=== PATIENT | female | born 1960 | race Caucasian/White ===

== ENCOUNTER 2024-01-24 18:24 | Inpatient (IN) | payer BC, SELFPAY ==
[2024-01-24 13:04] VITALS: BP 105/90; BMI 33.4
[2024-01-24 14:34] LABS: % Basophils 0.7 % (0-2); % Eosinophils 3.9 % (0-6); % Immature Granulocytes 0.5 % (0-0.5); % Lymphocytes 18.2 % (20.5-51.1); % Monocytes 8.7 % (1.7-9.3); Absolute Basophils 0.1 10^3/uL (0-0.2); Absolute Eosinophils 0.4 10^3/uL (0-0.7); Absolute Immature Granulocytes 0.1 10^3/uL (0-0.05); Absolute Lymphocytes 1.8 10^3/uL (1.2-3.4); Absolute Monocytes 0.9 10^3/uL (0.1-0.6); Absolute Neutrophils 6.8 10^3/uL (1.4-6.5); Hematocrit 37.9 % (37.0-47.0); Hemoglobin 12.9 g/dL (12.0-16.0); Mean Corpuscular Hgb 28.9 pg (27.0-31.0); Mean Corpuscular Volume 84.8 fL (81.0-99.0); Mean Platelet Volume 10.2 fL (7.4-10.4); Nucleated Red Blood Cells % 0 %; Platelet Count 425 10^3/uL (130-400); Red Blood Cell Count 4.47 10^6/uL (4.20-5.40); Red Cell Dist. Width 13.3 % (11.5-14.5)
[2024-01-24 14:42] LABS: ALT (SGPT) 21 U/L (0-35); AST (SGOT) 30 U/L (14-36); Albumin 3.6 g/dl (3.5-5.0); Alkaline Phosphatase 130 U/L (38-126); Blood Urea Nitrogen 16 mg/dl (7-17); Calcium 9.3 mg/dl (8.4-10.2); Carbon Dioxide 24 mmol/L (22-30); Chloride 105 mmol/L (98-107); Estimated Creatinine Clearance 76 ml/min; Glucose 113 mg/dl (70-99); Potassium 4.3 mmol/L (3.5-5.1); Sodium 139 mmol/L (135-145); Total Bilirubin 0.3 mg/dl (0.2-1.3); Total Protein 6.6 g/dl (6.3-8.2); eGFR > 60.00
[2024-01-24 14:51] LABS: INR 1.21; PT 15.2 Sec (11.4-14.6)
[2024-01-24 15:06] VITALS: BP 117/50
[2024-01-24 15:14] LABS: Troponin I < 0.012 ng/ml
--- NOTE | 2024-01-24 15:54 | ED.GENMED ---
History of Present Illness
General
Chief Complaint: Cardiac Symptoms
Source: patient and spouse
Exam Limitations: none
Time Seen by Provider: 01/24/24 14:49
Travel History
Have you had any contact with someone who has COVID-19?: No
Do you have any symptoms of coronavirus? Fever > 100 degrees, chills, cough, shortness of breath, sore throat, loss of taste or smell, muscle aches, or headache?: No
History of Present Illness
History of Present Illness:
Patient with 3 episodes of A-fib RVR this week. First episode was 6 days ago. Sudden onset heart racing. Admitted to [facility]. Placed on a Cardizem drip with self cardioversion by the next morning. At that time discharged on Cardizem
and Eliquis. 2 days later, 4 days ago, patient had severe A-fib RVR symptomatic diaphoretic lightheaded. Attempted cardioversion in the ambulance. Was admitted placed on Cardizem followed by sotalol. Sotalol loading done until 2 days ago. At
that time discharge. Recurring A-fib RVR that night, 2 days ago, again readmitted laced on a Cardizem drip with self cardioversion by the next morning. Patient had recurrent episode 2 times today. Was told to go to dual time he ER or hospital for
a ablation
Past History
Past History
ED Past Medical History: Arrthythmia and Other (Sleep apnea)
Review of Systems
Review of Systems
All Other Systems: Not applicable
Respiratory: Reports no symptoms
Cardiac: Denies chest pain
Phy Exam
Physical Exam
Physical Exam:
GENERAL: Alert and oriented in no apparent distress
EYE: Orbits normal.
NECK: Supple, no significant adenopathy.
ENT: Pharynx without erythema
CARDIAC: Regular rate and rhythm without any obvious murmurs.
LUNGS: Clear breath sounds,normal
ABDOMEN: Soft, without focal tenderness or distention
NEUROLOGICAL: Alert and oriented , grossly non-focal
SKIN: Warm and dry, no rash or lesion, no discoloration, skin intact.
MUSCULOSKELETAL: No edema,no deformity.Good color
PSYCH: Normal and appropriate interaction.
Course
Orders/Labs/Results
Orders:
Orders
01/24/24 13:08
EKG [Electrocardiogram (*1)] Urgent
Reason for Study: Atrial Fibrillation
01/24/24 13:09
EKG- Treatment ONCE
01/24/24 14:23
Complete Blood Count/With Diff Urgent
Comprehensive Metabolic Panel Urgent
Prothrombin Time Urgent
Troponin I Urgent
Abnormal Lab Results
01/24/24
14:23
Plt Count 425 H 10^3/uL
(130-400)
Abs Immat Gran (auto) 0.1 H 10^3/uL
(0-0.05)
Absolute Neuts (auto) 6.8 H 10^3/uL
(1.4-6.5)
Absolute Monos (auto) 0.9 H 10^3/uL
(0.1-0.6)
Lymphocytes % 18.2 L %
(20.5-51.1)
PT 15.2 H Sec
(11.4-14.6)
Glucose 113 H mg/dl
(70-99)
Alkaline Phosphatase 130 H U/L
(38-126)
01/24/24 14:23
01/24/24 14:23
Vital Signs
Initial and Last Documented VS:
Initial Vital Signs
Temp Pulse Resp BP Pulse Ox
98.5 F 73 18 105/90 96
01/24/24 13:04 01/24/24 13:04 01/24/24 13:04 01/24/24 13:04 01/24/24 13:04
Last Documented Vital Signs
Temp Pulse Resp BP Pulse Ox
98.5 F 73 18 105/90 98
01/24/24 13:04 01/24/24 13:04 01/24/24 13:04 01/24/24 13:04 01/24/24 15:08
*Pulse Oximetry
Patient hypoxic: no
*EKG
Interpreted by ED Provider?: Yes
Interpretation: abnormal
Comparison EKG: no comparison EKG present
Heart Rate: 73
Rate: normal
Rhythm: sinus
[place]: normal axis
Interval: normal interval
QRS Pattern: normal QRS
Ischemia: T-wave inversion
*Assistant Professor Nurse Education Interpretation
Rate: normal
Interpretation: normal
Heart Rate: 70
Rhythm: sinus
*Critical Care Note
Total Time (30-74mins, 75-104mins- exclusive of procedures): Not Applicable
Update Note
Update Note:
Discussed with cardiology. 3 episodes of symptomatic atrial fibrillation this week. Given the recent sotalol loading we will not change this dosing currently. Reluctant to increase Cardizem because of borderline heart rate and borderline blood
pressure while on these doses. Discussed admission versus close outpatient follow-up. Given the symptomatic fibrillation this past week patient is more comfortable with admission and further observation and care
ED Attending Note
-
Portions of this chart may have been created with voice recognition software.� Occasional wrong word or��sound alike� substitutions may have occurred due to the inherent limitations of voice recognition software.
Discharge Plan
Departure
Patient Disposition: Admit
Date of Disposition: 01/24/24
Time of Disposition: 15:55
Presentation/result/management discussed w/ accepting MD/DO: Cardiology
Discharge Problem:
Recurrent A-fib/RVR.
Prescriptions:
No Action
levothyroxine 137 mcg tablet
137 mcg PO MOTUWETHFRSA
levothyroxine 137 mcg tablet
205.5 mcg PO CHARLES
leflunomide 20 mg tablet
20 mg PO DAILY
sotalol 120 mg tablet
120 mg PO BID
sertraline 25 mg tablet
25 mg PO HS
diltiazem HCl 120 mg capsule,extended release 24hr
120 mg PO DAILY
bupropion HCl 300 mg tablet extended release 24 hr
300 mg PO DAILY
Eliquis 5 mg tablet
5 mg PO BID
Qelbree 200 mg capsule,extended release 24hr
400 mg PO DAILY
multivitamin Tablet
1 tab PO DAILY
B Complex Tablet Extended Release
1 tab PO DAILY
calcium carbonate [Calcium 500] 500 mg calcium (1,250 mg) Tablet
500 mg PO DAILY
cholecalciferol (vitamin D3) 25 mcg (1,000 unit) Tablet
25 mcg PO DAILY
omega 9-gub-pcz-fish oil [Fish Oil] 1,000 mg (120 mg-180 mg) Capsule
1 cap PO DAILY
Qelbree 100 mg capsule,extended release 24hr
100 mg PO DAILY
Referrals:
Kathi Thomas CRNP [Family Provider] -
Interventions
Interventions:
*Risk Screen - Suicide Last Done: 01/24/24 13:04
*General Assessment Last Done: 01/24/24 15:07
*Neglect/Abuse Screening Last Done: 01/24/24 13:04
ED- Fall Risk Assessment Last Done: 01/24/24 15:08
*ED COVID-19 Vaccine History Last Done: 01/24/24 15:07
ED- Pulmonary Assessment Last Done: 01/24/24 15:08
ED- Cardiac Assessment Last Done: 01/24/24 15:08
Discharge Date and Time
Print Language: FRISIAN
[2024-01-24 16:14] VITALS: BP 120/34
--- NOTE | 2024-01-24 16:49 | HPS.HSE ---
Family Physician
-
Family Physician: Kathi Thomas
Chief Complaint
-
Rapid heart rate.
History of Present Illness
63 woman who has had 3 episodes of A-fib with RVR this week. The First episode was 6 days ago. She feels it as Sudden onset heart racing. She was admitted to [facility] and Placed on a Cardizem drip, then she had self cardioversion by the
next morning. She was discharged on Cardizem and Eliquis. 2 days later, (4 days ago), She had severe A-fib with RVR, symptomatic with diaphoretic lightheadedness. Cardioversion was attempted in the ambulance. She Was then admitted and placed on
Cardizem, followed by sotalol. The Sotalol loading was done until 2 days ago when she was again discharged. She had Recurring A-fib RVR that night at home, 2 days ago, and was again readmitted, placed on a Cardizem drip with self cardioversion by
the next morning.
Patient had recurrent episodes 2 times today. She was told to go to the ER or hospital for an ablation. At the time of my interview, she was back in sinus, rate of 70, and comfortable.
Medical History
Past Medical History
Past Medical History: Reports Other
Additional Past Medical History:
Arrthythmia - on eliquis, sotalol, diltiazem
Sleep apnea
Thyroid disease (on levothyroxine)
Mood disorder on SSRI
Rheumatoid arthritis
Past Surgical History: Reports None
Social History
Tobacco: Non-smoker
Alcohol: None
Drug: None
Personal:
Living: With Family
Family History
Family History: Not pertinent
Allergies / Home Medications
Allergies reflects when Allergies were last updated in [employer].
Home Medications with original date entered in [employer]
Allergy/Medication List:
Allergies
Allergy/AdvReac Type Severity Reaction Status Date / Time
adhesive Allergy Rash Verified 01/24/24 13:04
iodine Allergy Nausea / Verified 01/24/24 13:04
Vomiting
Home Medications
apixaban 5 mg tablet (Eliquis) 5 mg PO BID 01/24/24
bupropion HCl 300 mg 24 hr tablet, extended release 300 mg PO DAILY 01/24/24
calcium carbonate 500 mg PO DAILY 01/24/24
cholecalciferol (vitamin D3) 25 mcg (1,000 unit) tablet 25 mcg PO DAILY 01/24/24
diltiazem HCl 120 mg capsule,extended release 24 hr 120 mg PO DAILY 01/24/24
leflunomide 20 mg tablet 20 mg PO DAILY 01/24/24
levothyroxine 137 mcg tablet 137 mcg PO MOTUWETHFRSA 01/24/24
levothyroxine 137 mcg tablet 205.5 mcg PO CHARLES 01/24/24
multivitamin 1 tab PO DAILY 01/24/24
omega 8-hja-dco-fish oil 1,000 mg (120 mg-180 mg) capsule (Fish Oil) 1 cap PO DAILY 01/24/24
sertraline 25 mg tablet 25 mg PO HS 01/24/24
sotalol 120 mg tablet 120 mg PO BID 01/24/24
viloxazine 100 mg capsule,extended release 24 hr (Qelbree) 100 mg PO DAILY taken w/ 400mg = 500mg 01/24/24
viloxazine 200 mg capsule,extended release 24 hr (Qelbree) 400 mg PO DAILY taken w/ 100mg = 500mg 01/24/24
vitamin B complex 1 tab PO DAILY 01/24/24
Review of Systems
-
History Source: Patient
A 12 point ROS was completed and negative except as noted: Yes
Physical Exam
Vital Signs
Vital Signs
Temp Pulse Resp BP Pulse Ox
98.5 F 73 18 105/90 98
01/24/24 13:04 01/24/24 13:04 01/24/24 13:04 01/24/24 13:04 01/24/24 15:08
Physical Exam
General: Well Developed, Well Nourished, No Apparent Distress, Comfortable, Conversant and Obese
HEENT: NormoCephalic, Moist mucous membranes, Nose Appears Normal and Ears Appear Normal
Respiratory: Clear
Cardiac: S1/S2 and Regular Rhythm
GI: Soft, Non Tender and Non Distended
Musculoskeletal: No Clubbing, No Cyanosis and No Edema
Skin: Warm and Dry; No Rash or Jaundice
Neuro: Awake, Alert, Oriented and AO x 3
Psych: Calm
Laboratory Results
-
01/24/24 14:23
01/24/24 14:23
Laboratory Results
PT 15.2 Sec (11.4-14.6) H 01/24/24 14:23
INR 1.21 01/24/24 14:23
Total Bilirubin 0.3 mg/dl (0.2-1.3) 01/24/24 14:23
AST 30 U/L (14-36) 01/24/24 14:23
ALT 21 U/L (0-35) 01/24/24 14:23
Alkaline Phosphatase 130 U/L (38-126) H 01/24/24 14:23
Troponin I < 0.012 ng/ml 01/24/24 14:23
Data Reviewed
-
Lab Data: Labs Reviewed by me
Impression/Plan
-
IMPRESSION:
63 woman with multiple recent episodes of afib with RVR, now in sinus.
PLAN:
1. Afib with RVR, despite being on sotalol and diltiazem. On eliquis.
Cardiology consult - please eval for possible ablation.
Until then, continue oral meds
Cycle troponins
Telemetry
Check TSH
2. Rheumatoid arthritis - having current exacerbation - does not want steroids
Tylenol as needed
3. Thyroid disease - check TSH
4. Elevated a-phos of unclear significance
Check again in am to see trend
Full code
VCD for DVTp (also the eliquis)
[2024-01-24 17:00] VITALS: BP 119/60
[2024-01-24 20:57] VITALS: BMI 33.2; BMI 33.4
[2024-01-24 21:26] LABS: Troponin I < 0.012 ng/ml
[2024-01-24 21:48] LABS: TSH Reflex To Free T4 5.45 uIU/ml (0.47-4.68)
[2024-01-24] MEDS: BETAPACE 120 MG PO (22:00)
[2024-01-24] MEDS: ZOLOFT 25 MG PO (22:00)
[2024-01-24] MEDS: ELIQUIS 5 MG PO (22:00)
[2024-01-24 22:15] LABS: Free T4 1.09 ng/dl (0.78-2.19)
[2024-01-24 22:19] VITALS: BP 149/77
[2024-01-24 23:00] VITALS: BP 129/68
[2024-01-25] VITALS (14 sets, daily range): BP systolic 85–148; BP diastolic 54–78; BMI 33.2
[2024-01-25] MEDS: MELATONIN 3 MG PO ×2 (00:55→21:30)
[2024-01-25 05:56] LABS: Hematocrit 38.1 % (37.0-47.0); Hemoglobin 12.4 g/dL (12.0-16.0); Mean Corp Hgb Conc. 32.5 g/dL (33.0-37.0); Mean Corpuscular Hgb 28.8 pg (27.0-31.0); Mean Corpuscular Volume 88.6 fL (81.0-99.0); Mean Platelet Volume 10.3 fL (7.4-10.4); Platelet Count 369 10^3/uL (130-400); Red Cell Dist. Width 13.4 % (11.5-14.5); White Blood Cell Count 10.5 10^3/uL (4.8-10.8)
[2024-01-25 06:23] LABS: Blood Urea Nitrogen 12 mg/dl (7-17); Calcium 9.2 mg/dl (8.4-10.2); Carbon Dioxide 25 mmol/L (22-30); Chloride 108 mmol/L (98-107); Estimated Creatinine Clearance 112 ml/min; Glucose 106 mg/dl (70-99); HDL Cholesterol 24 mg/dl; LDL Cholesterol, Calculated 81 mg/dl; Potassium 4.2 mmol/L (3.5-5.1); Sodium 141 mmol/L (135-145); Total Cholesterol 126 mg/dl (50-199); Triglyceride 107 mg/dl (10-149); Very Low Density Lipoprotein 21 mg/dl (0-30); eGFR > 60.00
[2024-01-25 06:24] LABS: Troponin I < 0.012 ng/ml
[2024-01-25] MEDS: SYNTHROID 137 MCG PO (06:32)
[2024-01-25] MEDS: OSCAL CAL 500 500 MG PO (08:06)
[2024-01-25] MEDS: VITAMIN D3 (cholecalciferol) 25 MCG PO (08:06)
[2024-01-25] MEDS: THERAGRAN 1 TABLET PO (08:06)
[2024-01-25] MEDS: WELLBUTRIN XL (24 hour extended release) 300 MG PO (08:06)
[2024-01-25] MEDS: CARDIZEM CD 120 MG PO (08:06)
[2024-01-25] MEDS: ELIQUIS 5 MG PO ×2 (08:06→19:53)
[2024-01-25] MEDS: B COMPLEX w/VITAMIN C 1 CAPLET PO (08:06)
[2024-01-25] MEDS: BETAPACE 120 MG PO (08:06)
--- NOTE | 2024-01-25 10:42 | CON.CAR ---
Addendum entered and electronically signed by Shayne Valverde MD 01/25/24 12:02:
63-year-old woman with sleep apnea and hypothyroidism, rheumatoid arthritis now with PAF breaking through on sotalol, diltiazem and Eliquis
Allergies are iodine
Outpatient medications: Apixaban 5 mg twice daily, Wellbutrin 300 mg a day, diltiazem ER 120 mg a day, leflunomide 20 mg a day, omega-3 fish oil, sertraline 25 mg a day, sotalol 120 mg twice daily, viloxazine
Current meds: Reviewed
PMH/PSH/SH/FH: Reviewed
ROS: Negative except as above
114/58, pulse 66, respiratory 20, no distress, head neck exam unremarkable, lungs are clear, regular rate and rhythm, possibly soft systolic murmur, abdomen benign extremities without clubbing cyanosis or edema neuro nonfocal
ECG sinus rhythm, possible anterolateral ischemia, QT interval okay
Hemoglobin 12.4, BUN and creatinine 12 and 0.6, potassium 4.2, troponin is undetectable, T4 is normal
Impression:
Paroxysmal atrial fibrillation w/ RVR
Sotalol therapy (started 01/20/2024)
Eliquis anticoagulation - started 01/18/2024Severe CARLOS, compliant w/ CPAP
Rheumatoid arthritis
Mild MR
Hypothyroidism
Anxiety/depression
Echo 01/21/2024: EF 55-60%, mild-mod cLVH, mild MR, trivial pericardial effusion
Plan:
She presents with recurrent paroxysmal atrial fibrillation on sotalol. Qelbree is a relatively recent addition with up titration of the drug 2 or 3 months ago. This could theoretically be a contributor, though A-fib is not listed as a common side
effect (suspect drug was tested in much younger people). Fish oil could also be associated with A-fib.
I have asked her to consider a decrease in Qelbree if possible. She should stop fish oil.
Regarding her recurrent A-fib, we will stop sotalol and begin amiodarone short-term, though ultimately patient should be referred for an ablation.
She is compliant with her sleep apnea mask. She has lost 20 or 30 pounds and I urged her to keep going.
Will start amiodarone tomorrow night, consider discharge Thursday night or Thursday morning presuming she has not broken through with additional atrial fibrillation.
She has an abnormal EKG at baseline, suggestive of obstructive cardiomyopathy though her echo was reported to be unremarkable. She should undergo sestamibi testing prior to PVI.
Continue diltiazem for now.
Original Note:
Consultation
Consultation Request
Date/Time Consultation Requested: 01/25/2024
Date/Time Consultation Performed: 01/25/2024
Requesting Provider: Dr. Villafana
Performing Provider: Dr. PENNY Valverde
Reason for Consultation: Rapid Afib
Medical History
-
History of Present Illness:
HPI: Shantell is a 63 year old female with PMH of paroxysmal atrial fibrillation recently started on sotalol and Eliquis. She states initially she was diagnosed with afib 3 years ago and was managed with Toprol alone. With starting treatment for her
sleep apnea and losing weight. She had no recurrences and was taken off anticoagulation. Then last week, she had recurrent rapid atrial fibrillation and was seen in [facility] multiple times. She was started on anticoagulation 01/17 with her initial
recurrence as well as rate control w/ cardizem, but then subsequently had another recurrence which prompted hospitalization and she was initiated on antiarrhythmic therapy with sotalol 120mg BID. She again recurred with afib a few days later and was
admitted to [facility] and spontaneously converted while on cardizem gtt. Yesterday she had multiple episodes of recurrent afib and called the on-call machine gunner at [facility]. She was recommended to come to for further evaluation. In ER, she initially was
in rapid atrial fibrillation with HR in the 150s and spontaneously converted to SR. She was admitted for further workup and evaluation. Cardiology consulted. She had recurrent rapid atrial fibrillation this AM for a few hours, however again
spontaneously converted to SR. She feels well while in SR, and admits that in Afib she feels a vibrating sensation in her chest. Her symptoms have improved since starting sotalol, however have not resolved, still w/ fairly frequent breakthroughs of
afib.
PMH:
Paroxysmal atrial fibrillation
Sotalol therapy (started 01/20/2024)
Eliquis anticoagulation - started 01/18/2024
Severe CARLOS, compliant w/ CPAP
Rheumatoid arthritis
Mild MR
Hypothyroidism
Anxiety/depression
Past Medical History
Past Medical History: Other (In HPI)
Past Surgical History: Other (tubal ligation )
Social History
Tobacco: Former Smoker (Quit 2000)
Alcohol: Former (Quit )
Drug: Former User (Quit )
Personal:
Living: With Family
Employment: Employed
Family History
Family History: CAD
Allergies / Home Medications
Allergy/AdvReac Type Severity Reaction Status Date / Time
adhesive Allergy Rash Verified 01/24/24 13:04
iodine Allergy Nausea / Verified 01/24/24 13:04
Vomiting
�Medication �Instructions �Recorded �Confirmed �Type
apixaban 5 mg tablet (Eliquis) 5 mg PO BID Blood Clot 01/24/24 01/24/24 History
Prevention/Tx
bupropion HCl 300 mg 24 hr tablet, 300 mg PO DAILY Depression 01/24/24 01/24/24 History
extended release
calcium carbonate 500 mg PO DAILY Supplement 01/24/24 01/24/24 History
cholecalciferol (vitamin D3) 25 25 mcg PO DAILY Supplement 01/24/24 01/24/24 History
mcg (1,000 unit) tablet
diltiazem HCl 120 mg 120 mg PO DAILY Blood Pressure 01/24/24 01/24/24 History
capsule,extended release 24 hr
leflunomide 20 mg tablet 20 mg PO DAILY Cancer 01/24/24 01/24/24 History
levothyroxine 137 mcg tablet 137 mcg PO MOTUWETHFRSA Thyroid 01/24/24 01/24/24 History
levothyroxine 137 mcg tablet 205.5 mcg PO CHARLES Thyroid 01/24/24 01/24/24 History
multivitamin 1 tab PO DAILY Supplement 01/24/24 01/24/24 History
omega 5-qgk-lae-fish oil 1,000 mg 1 cap PO DAILY Supplement 01/24/24 01/24/24 History
(120 mg-180 mg) capsule (Fish Oil)
sertraline 25 mg tablet 25 mg PO HS Depression 01/24/24 01/24/24 History
sotalol 120 mg tablet 120 mg PO BID Arrhythmia 01/24/24 01/24/24 History
viloxazine 100 mg capsule,extended 100 mg PO DAILY taken w/ 400mg = 01/24/24 01/24/24 History
release 24 hr (Qelbree) 500mg
viloxazine 200 mg capsule,extended 400 mg PO DAILY taken w/ 100mg = 01/24/24 01/24/24 History
release 24 hr (Qelbree) 500mg
vitamin B complex 1 tab PO DAILY Supplement 01/24/24 01/24/24 History
Review of Systems
-
History Source: Patient
All other systems: Negative unless noted
Physical Exam
Vital Signs
Temp Pulse Resp BP Pulse Ox
98 F 150 20 136/71 99
01/25/24 08:00 01/25/24 08:06 01/25/24 08:00 01/25/24 08:06 01/25/24 08:00
Lab Results
01/25/24 05:21
01/25/24 05:21
Troponin I < 0.012 ng/ml 01/25/24 05:21
Physical Exam
General: Well Developed, Well Nourished and No Apparent Distress
HEENT: Normocephalic, Anicteric and Moist Mucous Membranes
Respiratory: Clear and Non Labored Respirations
Cardiac: S1/S2 and Regular Rhythm
Musculoskeletal: No Clubbing, No Cyanosis and No Edema
Skin: Warm and Dry
Neuro: AO x 3 and Nonfocal/Grossly Intact
Psych: Calm
Impression / Plan
-
PCP: Kathi Thomas
Health Club Manager: Dr. Mayen
Impression:
Paroxysmal atrial fibrillation w/ RVR
Sotalol therapy (started 01/20/2024)
Eliquis anticoagulation - started 01/18/2024
Severe CARLOS, compliant w/ CPAP
Rheumatoid arthritis
Mild MR
Hypothyroidism
Anxiety/depression
Echo 01/21/2024: EF 55-60%, mild-mod cLVH, mild MR, trivial pericardial effusion
Plan:
-Presented with rapid atrial fibrillation. She has had 3 admissions at [facility] over the past week w/ rapid afib.
-EKGs reviewed from ER, initially in rapid atrial fibrillation, w/ subsequent EKGs showing SR w/ T wave inversions, stable compared to [facility] EKG.
-Started on Sotalol 120mg BID on 12/26/28. Her QTc is stable at 451ms, however she has had multiple breakthroughs of afib despite antiarrhythmic therapy.
-Will stop sotalol and plan to initiate amiodarone after sotalol washout.
-She continues on Eliquis 5mg BID for anticoagulation.
-Continue Cardizem 120mg daily for rate control. May consider increasing dose as HRs are in the 140s to 150s when in afib.
-Echo recently at [facility] noted preserved EF with mild MR. No need to repeat at this time.
-She is compliant with her CPAP at home.
-TSH 5.45 with free T4 1.09. Continue levothyroxine
-K 4.2
-Troponin negative x 2. Consider eventual ischemic evaluation.
-Likely will need ablation, will arrange follow up w/ EP.
HPI: Shantell is a 63 year old female with PMH of paroxysmal atrial fibrillation recently started on sotalol and Eliquis. She states initially she was diagnosed with afib 3 years ago and was managed with Toprol alone. With starting treatment for her
sleep apnea and losing weight. She had no recurrences and was taken off anticoagulation. Then last week, she had recurrent rapid atrial fibrillation and was seen in [facility] multiple times. She was started on anticoagulation 01/17 with her initial
recurrence as well as rate control w/ cardizem, but then subsequently had another recurrence which prompted hospitalization and she was initiated on antiarrhythmic therapy with sotalol 120mg BID. She again recurred with afib a few days later and was
admitted to [facility] and spontaneously converted while on cardizem gtt. Yesterday she had multiple episodes of recurrent afib and called the on-call machine gunner at [facility]. She was recommended to come to for further evaluation. In ER, she initially was
in rapid atrial fibrillation with HR in the 150s and spontaneously converted to SR. She was admitted for further workup and evaluation. Cardiology consulted. She had recurrent rapid atrial fibrillation this AM for a few hours, however again
spontaneously converted to SR. She feels well while in SR, and admits that in Afib she feels a vibrating sensation in her chest. Her symptoms have improved since starting sotalol, however have not resolved, still w/ fairly frequent breakthroughs of
afib.
Data Reviewed
-
EKG: Tracing Personally Visualized and interpreted
Labs: Labs Reviewed by me
Old Records: Requested and Reviewed
--- NOTE | 2024-01-25 10:55 | PTCARENOTE ---
Pt AOx3, no complaints of pain or discomfort. Independent with ADLs. VSS. Call otoole within reach.
[2024-01-25 12:10] LABS: Glycohemoglobin (HgbA1c) 5.8 % (4.0-5.6)
--- NOTE | 2024-01-25 12:45 | CM ---
Reviewed chart. Met with Mrs. Cr to review discharge plans. She states prior to admission she resides with her spouse in a two story home with two steps to enter. She states he main bedroom/bathroom on the first floor. She states prior to
admission she was independent with ambulation and adls. She states she has a CPAP Machine a home and no other DME in the home. She states she has a prescription plan and uses [facility]. Medical work-up in progress. The discharge plan is to
return home with her souse when medically stable.
--- NOTE | 2024-01-25 15:52 | W.PN.HOSP.TC ---
Addendum entered and electronically signed by Edgar Ceron MD 01/25/24 21:15:
I saw and evaluated the patient. I reviewed the resident�s note and agree with findings and plan as documented in the resident�s note. Patient complaint of migratory joint pain. Denies CP palpitations Full 12 point ROS reviewed and negative except
as documented Exam: Vitals reviewed in chart GEN-NAD heart RRR no m/r/g abd soft LE no edema Plan:
# Afib with RVR
-transition sotalol to amiodarone on 01/24
-now in NSR
-for ablation likely as OP
-cont Telemetry
-cards input appreciated
-cont dilt and Eliquis
# Rheumatoid arthritis
- cont current meds leflunomide
- refusing steroids
- Tylenol as needed
# Migratory Polyarthritis
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
- r/o lyme
# Hypothyroidism
- cont levothyroxine
- elevated TSH
- repeat as OP in 4 weeks
# CARLOS
- patient non compliant with CPAP
- encourage Cpap q hs
# Depression
- cont bupropion and sertraline
- was on 500mg viloxazine now on 100mg- cont current dosing for now due to possible association with afib
Full code
DVT proph- eliquis
Dispo DC home in 24-48 hours
Time spent coordinating care, review of plan of care with resident, review of records, med rec, consults, notes, labs, rads, d/w nursing � 52 mins
Original Note:
Today's Communication/Plan
-
Cardiac monitoring
Assessment / Plan
Assessment / Plan
Impression: 53-year-old female with recent diagnosis of A-fib with RVR, history of rheumatoid arthritis sleep apnea (+ CPAP HS), ADHD, hypothyroidism, presents with multiple episodes of A-fib with RVR
Acute Problems:
A-fib with RVR:
Generalized muscle pain
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
Rheumatoid arthritis
Sleep apnea
ADHD
Hypothyroidism
#A-fib with RVR
-In sinus rhythm
Cardiology consult: Stop sotalol, start amiodarone tomorrow. Consider Thursday night or Thursday morning discharge if remaining in sinus rhythm. Continue diltiazem. Possible reduction of Qelbree dose. Continue uatsdin sleep apnea treatment and
lifestyle change
#Generalized muscle pain
Check Lyme panel
-
#Rheumatoid arthritis:
Recent exacerbation, resolving
-Continue leflunomide
-Tylenol as needed for pain
#Sleep apnea
Might be a contributing factor to A-fib
Recent weight loss
Compliant with CPAP
#ADHD
- On Viloxazine
Hypothyroidism:
TSH 5.45, T4 1.09
-Continue levothyroxine
DVT prophylaxis Eliquis, SCD
CODE STATUS full code
Anticipated Discharge: 24 - 48 hours
Subjective/Interval History
-
Date of Service: January 25, 2024
Patient complains of pain in upper thighs and tendons of hip flexors, recalls month-long history of migratory pain, different from usual joint pain of RA. Requests Lyme test. Subjective fever last night
Objective Data
-
Labs:
Laboratory Results
01/25/24
05:21
WBC 10.5
Hgb 12.4
Hct 38.1
Plt Count 369
Sodium 141
Potassium 4.2
Chloride 108 H
Carbon Dioxide 25
BUN 12
Creatinine 0.6
Glucose 106 H
Calcium 9.2
Vital Signs:
Vital Signs
Temp Pulse Resp BP Pulse Ox
98.0 F 66 20 114/58 98
01/25/24 11:18 01/25/24 11:19 01/25/24 11:18 01/25/24 11:19 01/25/24 11:18
Review of Systems
-
History Source: Patient
Constitutional: Denies Fever
Respiratory: Reports No Symptoms; Denies Cough or Trouble Breathing
Cardiac: Reports No Symptoms; Denies Chest Pain, Palpitations or Syncope
Abdomen/GI: Reports No Symptoms; Denies Abdominal Pain, Nausea, Vomiting, Diarrhea or Constipated
Genitourinary: Reports No Symptoms and Difficulty Voiding; Denies Dysuria or Bleeding
Musculoskeletal: Reports Joint Pain (bilateral ankle)
Neuro: Reports No Symptoms; Denies Dizzy or Headache
Physical Exam
-
General: Well Developed, Well Nourished, No Apparent Distress and Comfortable
Respiratory: Clear to Auscultation and Wheezes
Cardiac: Regular Rhythm and S1/S2; Negative Murmur, Rub, Calf Tenderness or Kay's Sign
GI: Soft, Nontender, Nondistended and Normal Bowel Sounds
Musculoskeletal: No Clubbing, No Cyanosis, No Edema and Other (mild ankle tenderness with passive ROM, bilaterally)
Skin: Warm and Dry
Neuro: Awake, Alert and Oriented
Psych: Calm
--- NOTE | 2024-01-25 21:05 | PTCARENOTE ---
Pt rec'd at change of shift in sinus rhythm. CPAP set up by resp. awaiting pts home meds to be checked by pharmacy. Pt requesting melatonin at HS.
[2024-01-25] MEDS: NON-FORMULARY ITEM 20 MG PO (21:30)
[2024-01-25] MEDS: ZOLOFT 25 MG PO (21:30)
[2024-01-26] VITALS (8 sets, daily range): BP systolic 89–155; BP diastolic 66–98
--- NOTE | 2024-01-26 01:02 | PTCARENOTE ---
At 0008 pt converted into afib/aflutter rhythm low 100's.
[2024-01-26 05:30] LABS: Hematocrit 40.9 % (37.0-47.0); Hemoglobin 13.3 g/dL (12.0-16.0); Mean Corp Hgb Conc. 32.5 g/dL (33.0-37.0); Mean Corpuscular Hgb 28.8 pg (27.0-31.0); Mean Corpuscular Volume 88.5 fL (81.0-99.0); Mean Platelet Volume 10.3 fL (7.4-10.4); Platelet Count 424 10^3/uL (130-400); Red Blood Cell Count 4.62 10^6/uL (4.20-5.40); Red Cell Dist. Width 13.3 % (11.5-14.5); White Blood Cell Count 9.4 10^3/uL (4.8-10.8)
--- NOTE | 2024-01-26 05:48 | PTCARENOTE ---
Pt remains in rapid aflutter despite lying in bed
[2024-01-26 05:56] LABS: Blood Urea Nitrogen 12 mg/dl (7-17); Calcium 9.2 mg/dl (8.4-10.2); Carbon Dioxide 27 mmol/L (22-30); Chloride 107 mmol/L (98-107); Estimated Creatinine Clearance 112 ml/min; Glucose 103 mg/dl (70-99); Potassium 4.1 mmol/L (3.5-5.1); Sodium 144 mmol/L (135-145); eGFR > 60.00
--- NOTE | 2024-01-26 06:57 | W.PN.HOSP.TC ---
Addendum entered and electronically signed by Edgar Ceron MD 01/26/24 21:38:
I saw and evaluated the patient. I reviewed the resident�s note and agree with findings and plan as documented in the resident�s note. Had symptomatic rapid aflutter last pm. Full 12 point ROS reviewed and negative except as documented Exam: Vitals
reviewed in chart GEN-NAD heart RRR no m/r/g abd soft LE no edema Plan:
# Afib with RVR
-sotalol washout will start amiodarone on 01/25
-now in NSR
-for PVI +/- LAPW isolation and then perform EPS to look for inducible atrial flutter
- screening preablation CT to be done while IP
-cont Telemetry
-cards input appreciated
-cont dilt and Eliquis
# Rheumatoid arthritis
- cont current meds leflunomide
- refusing steroids
- Tylenol as needed
- f/u rheum as OP
# Migratory Polyarthritis
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
- r/o lyme - P
# Hypothyroidism
- cont levothyroxine
- elevated TSH
- repeat as OP in 4 weeks
# CARLOS
- patient states she is compliant with CPAP
- encourage Cpap q hs
# Depression
- cont bupropion and sertraline
- was on 500mg viloxazine may need to decrease as OP
Full code
DVT proph- eliquis
Dispo DC home in am
Time spent coordinating care, review of plan of care with resident, review of records, med rec, consults, notes, labs, rads, d/w nursing � 51 mins
Original Note:
Today's Communication/Plan
-
Start Amioderone tonight
Assessment / Plan
Assessment / Plan
Impression: 53-year-old female with recent diagnosis of A-fib with RVR, history of rheumatoid arthritis sleep apnea (+ CPAP HS), ADHD, hypothyroidism, presents with multiple episodes of A-fib with RVR
Acute Problems:
A-fib with RVR:
Generalized muscle pain
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
Rheumatoid arthritis
Sleep apnea
ADHD
Hypothyroidism
#A-fib with RVR
-Rapid afib/aflutter overnight
Cardiology appreciated
Continued Diltiazem
Sotalol washout to transition to amiodarone at 9pm tonight.
For ablation outpatient in 1-2 months
Viloxazine at 100mg
Outpt: Continue hinduism sleep apnea treatment and lifestyle change
#Generalized muscle pain
vs migratory polyarthritis related to RA
- Lyme panel pending
#Rheumatoid arthritis:
Recent exacerbation, resolving
-Continue leflunomide
-No steroids per pt preference
-Tylenol as needed for pain
#Sleep apnea
Might be a contributing factor to A-fib
Recent weight loss
Compliant with CPAP
#ADHD
- On Viloxazine
Hypothyroidism:
TSH 5.45 (elevated), T4 1.09
-Continue levothyroxine
-repeat as outpt in 4 weeks
Prediabetes:
HbA1c 5.8
- Follow up with PCP outpt
Depression
- cont bupropion and sertraline
DVT prophylaxis Eliquis, SCD
CODE STATUS full code
Anticipated Discharge: 24 - 48 hours
Subjective/Interval History
-
Date of Service: January 26, 2024
Rapid fib/aflutter overnight. Palpitations, no other symptoms
Objective Data
-
Labs:
Laboratory Results
01/26/24
05:01
WBC 9.4
Hgb 13.3
Hct 40.9
Plt Count 424 H
Sodium 144
Potassium 4.1
Chloride 107
Carbon Dioxide 27
BUN 12
Creatinine 0.6
Glucose 103 H
Calcium 9.2
Vital Signs:
Vital Signs
Temp Pulse Resp BP Pulse Ox
98.4 F 75 16 118/85 96
01/26/24 06:50 01/26/24 06:50 01/26/24 06:50 01/26/24 04:53 01/26/24 06:50
I&O
01/24/24 01/25/24 01/26/24
06:59 06:59 06:59
Intake Total 480 / 480
Balance 480 / 480
Review of Systems
-
History Source: Patient
Constitutional: Reports No Symptoms; Denies Fever or Fatigue
Respiratory: Denies Cough or Trouble Breathing
Cardiac: Denies Chest Pain, Palpitations or Syncope
Abdomen/GI: Denies Abdominal Pain, Nausea, Vomiting, Diarrhea or Constipated
Genitourinary: Denies Dysuria, Difficulty Voiding or Bleeding
Musculoskeletal: Reports Joint Pain (mild ankle pain)
Neuro: Reports No Symptoms; Denies Dizzy or Headache
Physical Exam
-
General: Well Developed, Well Nourished, No Apparent Distress and Comfortable; Negative Respiratory Distress
HEENT: Normocephalic, Atraumatic, Moist Mucous Membranes and Anicteric
Respiratory: Clear to Auscultation and Non Labored Respirations; Negative Wheezes, Rales, Rhonchi, Crackles or Accessory Resp Muscle Use
Cardiac: Regular Rhythm and S1/S2; Negative Murmur, Rub, Calf Tenderness, Kay's Sign or Tachycardic
GI: Soft, Nontender and Nondistended
Musculoskeletal: No Clubbing, No Cyanosis and No Edema
Skin: Warm and Dry; Negative Rash, Ulcers or Lesions
Neuro: Awake, Alert and Oriented
Psych: Calm
[2024-01-26] MEDS: SYNTHROID 137 MCG PO (08:36)
[2024-01-26] MEDS: NON-FORMULARY ITEM 20 MG PO (08:42)
[2024-01-26] MEDS: B COMPLEX w/VITAMIN C 1 CAPLET PO (08:43)
[2024-01-26] MEDS: ELIQUIS 5 MG PO ×2 (08:43→19:28)
[2024-01-26] MEDS: THERAGRAN 1 TABLET PO (08:43)
[2024-01-26] MEDS: WELLBUTRIN XL (24 hour extended release) 300 MG PO (08:43)
[2024-01-26] MEDS: CARDIZEM CD 120 MG PO (08:43)
[2024-01-26] MEDS: OSCAL CAL 500 500 MG PO (08:43)
[2024-01-26] MEDS: VITAMIN D3 (cholecalciferol) 25 MCG PO (08:46)
--- NOTE | 2024-01-26 15:00 | CON.CAR ---
Addendum entered and electronically signed by Braden Thompson MD 01/26/24 15:11:
Will plan PVI +/- LAPW isolation and then perform EPS to look for inducible atrial flutter
Original Note:
Consultation
Consultation Request
Date/Time Consultation Requested: January 26, 2024
Date/Time Consultation Performed: January 26, 2024
Requesting Provider: Dr. Shayne Charles
Performing Provider: Dr. Thompson
Reason for Consultation: Atrial fibrillation
Medical History
-
Chief Complaint: Atrial fibrillation with RVR
History of Present Illness:
63-year-old female who was referred to the emergency room after symptomatic atrial fibrillation and atrial flutter by Dr. Charles. She is drug refractory to sotalol and was transition to amiodarone after drug washout. She has had symptoms for
approximately 12 months which are escalating and she is on CPAP therapy for her obstructive sleep apnea. ECGs were reviewed demonstrating atrial fibrillation and a separate tracing demonstrating possible CTI flutter. Hold remote stress testing.
She tells me that she has had recent echocardiogram at [place] demonstrating normal ejection fraction without significant wall motion abnormality.
PMHx:
Paroxysmal atrial fibrillation w/ RVR
Sotalol therapy (started 01/20/2024)
Eliquis anticoagulation - started 01/18/2024Severe CARLOS, compliant w/ CPAPRheumatoid arthritis
Mild MR
Hypothyroidism
Anxiety/depression
Echo 01/21/2024: EF 55-60%, mild-mod cLVH, mild MR, trivial pericardial effusion
Past Medical History
Past Medical History: Arrhythmias, Hypothyroidism and Psychiatric
Social History
Tobacco: Non-Smoker
Alcohol: Occasional
Drug: None
Personal:
Living: With Family
Employment: Other
Family History
Family History: Reviewed & Not Pertinent
Allergies / Home Medications
Allergy/AdvReac Type Severity Reaction Status Date / Time
adhesive Allergy Rash Verified 01/24/24 13:04
iodine Allergy Nausea / Verified 01/24/24 13:04
Vomiting
�Medication �Instructions �Recorded �Confirmed �Type
apixaban 5 mg tablet (Eliquis) 5 mg PO BID Blood Clot 01/24/24 01/24/24 History
Prevention/Tx
bupropion HCl 300 mg 24 hr tablet, 300 mg PO DAILY Depression 01/24/24 01/24/24 History
extended release
calcium carbonate 500 mg PO DAILY Supplement 01/24/24 01/24/24 History
cholecalciferol (vitamin D3) 25 25 mcg PO DAILY Supplement 01/24/24 01/24/24 History
mcg (1,000 unit) tablet
diltiazem HCl 120 mg 120 mg PO DAILY Blood Pressure 01/24/24 01/24/24 History
capsule,extended release 24 hr
leflunomide 20 mg tablet 20 mg PO DAILY Cancer 01/24/24 01/24/24 History
levothyroxine 137 mcg tablet 137 mcg PO MOTUWETHFRSA Thyroid 01/24/24 01/24/24 History
levothyroxine 137 mcg tablet 205.5 mcg PO CHARLES Thyroid 01/24/24 01/24/24 History
multivitamin 1 tab PO DAILY Supplement 01/24/24 01/24/24 History
omega 1-pin-dzq-fish oil 1,000 mg 1 cap PO DAILY Supplement 01/24/24 01/24/24 History
(120 mg-180 mg) capsule (Fish Oil)
sertraline 25 mg tablet 25 mg PO HS Depression 01/24/24 01/24/24 History
sotalol 120 mg tablet 120 mg PO BID Arrhythmia 01/24/24 01/24/24 History
viloxazine 100 mg capsule,extended 100 mg PO DAILY taken w/ 400mg = 01/24/24 01/24/24 History
release 24 hr (Qelbree) 500mg
viloxazine 200 mg capsule,extended 400 mg PO DAILY taken w/ 100mg = 01/24/24 01/24/24 History
release 24 hr (Qelbree) 500mg
vitamin B complex 1 tab PO DAILY Supplement 01/24/24 01/24/24 History
Review of Systems
-
All other systems: Negative unless noted
Respiratory: Trouble Breathing
Cardiac: Palpitations
Physical Exam
Vital Signs
Temp Pulse Resp BP Pulse Ox
98.5 F 77 16 117/77 99
01/26/24 11:08 01/26/24 11:08 01/26/24 11:08 01/26/24 08:45 01/26/24 11:08
Lab Results
01/26/24 05:01
01/26/24 05:01
Troponin I < 0.012 ng/ml 01/25/24 05:21
Physical Exam
General: Well Developed and Well Nourished
HEENT: Normocephalic and Anicteric
Respiratory: Clear
Cardiac: S1/S2 and Regular Rhythm
Breast: Deferred by me
GI: Soft, Non Tender and Non Distended
Rectal: Deferred by Provider
Genito-urinary: No Costovertebral Tender
Musculoskeletal: No Clubbing, No Cyanosis and No Edema
Skin: Warm and Dry
Neuro: Awake, Alert and Oriented
Hematologic/Lymphatic: No Lymphadenopathy
Psych: Calm
Impression / Plan
-
PCP: Kathi Thomas
Critical Care Clinical Nurse Specialist: Dr. Mayen
Impression:
Paroxysmal atrial fibrillation w/ RVR
Sotalol therapy (started 01/20/2024)
Eliquis anticoagulation - started 01/18/2024
Severe CARLOS, compliant w/ CPAP
Rheumatoid arthritis
Mild MR
Hypothyroidism
Anxiety/depression
Echo 01/21/2024: EF 55-60%, mild-mod cLVH, mild MR, trivial pericardial effusion
Plan:
-Presented with rapid atrial fibrillation. She has had 3 admissions at [facility] over the past week w/ rapid afib.
-EKGs reviewed from ER, initially in rapid atrial fibrillation, w/ subsequent EKGs showing SR w/ T wave inversions, stable compared to [facility] EKG.
-Initiating amiodarone tonight after sotalol washout
-She continues on Eliquis 5mg BID for anticoagulation.
-Continue Cardizem 120mg daily for rate control. May consider increasing dose as HRs are in the 140s to 150s when in afib.
-Echo recently at [facility] noted preserved EF with mild MR. No need to repeat at this time.
-She is compliant with her CPAP at home.
-TSH 5.45 with free T4 1.09. Continue levothyroxine
-K 4.2
-Troponin negative x 2. Consider eventual ischemic evaluation.
-Discussed atrial fibrillation ablation and atrial flutter ablation with patient and we will perform this consultation as our initial visit discussing procedure along with treatment alternatives such as third antiarrhythmic drug for rate control
only. As she has escalating burden symptomatic atrial fibrillation and typical appearing atrial flutter I discussed preablation CT scan as well as scheduling a procedure in the next 1 to 2 months. She is in agreement at the time answer all
questions and discussed risks of 1 of thousand risk of as well as 2% risk of vascular cardiac injury including tamponade. We discussed an approximate 10% repeat procedure reversible paroxysmal arrhythmias and thermal and nonthermal
approaches. She is willing to hear about research based options and I will ask my research team to screen her. I will have my scheduling team reach out to her to look at procedure dates over the summer.
Data Reviewed
-
EKG: Tracing Personally Visualized and interpreted
Labs: Labs Reviewed by me
Old Records: Requested
[2024-01-26] MEDS: TYLENOL 650 MG PO (20:08)
[2024-01-26] MEDS: PACERONE 400 MG PO (20:11)
[2024-01-26] MEDS: ZOLOFT 25 MG PO (21:05)
[2024-01-26] MEDS: MELATONIN 3 MG PO (21:05)
--- NOTE | 2024-01-26 22:29 | PTCARENOTE ---
Pt rec'd at change of shift awake,alert c/o tightness and aches in several places; Left knee,right ring finger and b/l feet. medicated with Tylenol with some relief. Sinus on telemetry at change of shift however at HS pt went into aflutter 110-130.
Pt states ' I can feel it when it starts'. first dose of Amiodarone given just after 8pm.
[2024-01-27] VITALS (14 sets, daily range): BP systolic 98–144; BP diastolic 49–89; BMI 32.7
[2024-01-27] MEDS: SYNTHROID 137 MCG PO (05:03)
[2024-01-27 05:32] LABS: Hematocrit 39.4 % (37.0-47.0); Mean Corpuscular Hgb 28.8 pg (27.0-31.0); Mean Corpuscular Volume 87.2 fL (81.0-99.0); Mean Platelet Volume 10.3 fL (7.4-10.4); Platelet Count 440 10^3/uL (130-400); Red Blood Cell Count 4.52 10^6/uL (4.20-5.40); Red Cell Dist. Width 13.2 % (11.5-14.5); White Blood Cell Count 8.4 10^3/uL (4.8-10.8)
[2024-01-27 05:58] LABS: Blood Urea Nitrogen 15 mg/dl (7-17); Calcium 9.3 mg/dl (8.4-10.2); Carbon Dioxide 28 mmol/L (22-30); Chloride 105 mmol/L (98-107); Estimated Creatinine Clearance 95 ml/min; Glucose 107 mg/dl (70-99); Potassium 4.4 mmol/L (3.5-5.1); Sodium 142 mmol/L (135-145); eGFR > 60.00
--- NOTE | 2024-01-27 06:09 | PTCARENOTE ---
Pt back in sinus at 0200
[2024-01-27] MEDS: NON-FORMULARY ITEM 20 MG PO (08:52)
[2024-01-27] MEDS: CARDIZEM CD 120 MG PO (08:54)
[2024-01-27] MEDS: ELIQUIS 5 MG PO ×2 (08:54→20:22)
[2024-01-27] MEDS: B COMPLEX w/VITAMIN C 1 CAPLET PO (08:54)
[2024-01-27] MEDS: WELLBUTRIN XL (24 hour extended release) 300 MG PO (08:54)
[2024-01-27] MEDS: VITAMIN D3 (cholecalciferol) 25 MCG PO (08:54)
[2024-01-27] MEDS: THERAGRAN 1 TABLET PO (08:54)
--- NOTE | 2024-01-27 08:54 | W.PN.HOSP.TC ---
Addendum entered and electronically signed by Edgar Ceron MD 01/27/24 20:48:
I saw and evaluated the patient. I reviewed the resident�s note and agree with findings and plan as documented in the resident�s note. Had symptomatic rapid aflutter overnight. Seen after IV metoprolol given. Feels flushed and 'not normal.' Full 12
point ROS reviewed and negative except as documented Exam: Vitals reviewed in chart GEN-NAD heart irreg irreg tachycardic no m/r/g abd soft LE no edema Plan:
# Afib with RVR
- sotalol washed out
- cont amiodarone load started on 01/25
- add metoprolol IV prn and start Cardizem gtt vs PO
- for PVI +/- LAPW isolation and then perform EPS to look for inducible atrial flutter as OP
- screening preablation CT as OP
- cont to monitor closely on Telemetry
- cards input appreciated
- cont Eliquis
# Rheumatoid arthritis
- cont current meds leflunomide
- refusing steroids
- Tylenol as needed
- f/u rheum as OP
# Migratory Polyarthritis
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
- r/o lyme - P
# Hypothyroidism
- cont levothyroxine
- elevated TSH
- repeat as OP in 4 weeks
# CARLOS
- patient states she is compliant with CPAP
- encourage Cpap q hs
# Depression
- cont bupropion and sertraline
- was on 500mg viloxazine may need to decrease as OP
Full code
DVT proph- eliquis
Dispo DC home in am if HR stable
Time spent coordinating care, review of plan of care with resident, review of records, med rec, consults, notes, labs, rads, d/w nursing and cards� 55 mins
Original Note:
Today's Communication/Plan
-
Amioderone gtt
Assessment / Plan
Assessment / Plan
Impression: 53-year-old female with recent diagnosis of A-fib with RVR, history of rheumatoid arthritis sleep apnea (+ CPAP HS), ADHD, hypothyroidism, presents with multiple episodes of A-fib with RVR
Acute Problems:
A-fib with RVR:
Generalized muscle pain
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
Rheumatoid arthritis
Sleep apnea
ADHD
Hypothyroidism
#A-fib with RVR
-Rapid afib/aflutter overnight s/p first dose of amiodarone a few hours before. Resolved spontaneously. A-flutter this morning:
Cardiology appreciated
Continue Amioderone
Lopressor 5mg IV push x2, -> Cardizem drip started
Increase cardizem to 240mg starting tomorrow
Cardiology to plan ablation procedure
Outpt: Continue adventist sleep apnea treatment and lifestyle change
#Generalized muscle/joint pain
likely migratory polyarthritis related to RA
- R/O lyme, lyme panel pending
#Rheumatoid arthritis:
Recent exacerbation, resolving
-Continue leflunomide
-No steroids or NSAIDs per pt preference
-Tylenol as needed for pain
#Sleep apnea
Might be a contributing factor to A-fib
Recent weight loss
Compliant with CPAP
#ADHD
- Viloxazine held per patient preference, for possible contribution to afib
Hypothyroidism:
TSH 5.45 (elevated), T4 1.09
-Continue levothyroxine
-repeat as outpt in 4 weeks
Prediabetes:
HbA1c 5.8
- Follow up with PCP outpt
Depression
- cont bupropion and sertraline
DVT prophylaxis Eliquis, SCD
CODE STATUS full code
Anticipated Discharge: 24 - 48 hours
Subjective/Interval History
-
Date of Service: January 27, 2024
Amioderone 400 mg first dose at 8 PM, Afib/aflutter overnight, hr 110s to 130s. Resolved
Episode of a flutter while at patient's bedside, symptomatic ->palpitations and malaise, 'I just don't feel good'
Objective Data
-
Labs:
Laboratory Results
01/27/24
04:58
WBC 8.4
Hgb 13.0
Hct 39.4
Plt Count 440 H
Sodium 142
Potassium 4.4
Chloride 105
Carbon Dioxide 28
BUN 15
Creatinine 0.7
Glucose 107 H
Calcium 9.3
Vital Signs:
Vital Signs
Temp Pulse Resp BP Pulse Ox
98.1 F 72 16 130/68 98
01/27/24 07:24 01/27/24 07:24 01/27/24 07:24 01/27/24 04:49 01/27/24 07:24
I&O
01/26/24 01/27/24 01/28/24
06:59 06:59 06:59
Intake Total 480 / 480 1200 / 1200
Balance 480 / 480 1200 / 1200
Review of Systems
-
History Source: Patient
Constitutional: Reports Other (malaise); Denies Fever
Respiratory: Reports No Symptoms; Denies Cough, Trouble Breathing or Wheezing
Cardiac: Reports Palpitations; Denies Chest Pain or Diaphoresis
Abdomen/GI: Reports Other (loose stools); Denies Nausea
Genitourinary: Denies Dysuria, Difficulty Voiding or Bleeding
Musculoskeletal: Reports Arthralgias
Neuro: Reports No Symptoms
Physical Exam
-
General: Well Developed, Well Nourished and Other (Appears uncomfortable); Negative Respiratory Distress
HEENT: Normocephalic, Atraumatic, Moist Mucous Membranes and Anicteric
Respiratory: Clear to Auscultation and Non Labored Respirations; Negative Accessory Resp Muscle Use
Cardiac: Regular Rhythm and S1/S2; Negative Murmur
GI: Soft, Nontender and Nondistended
Musculoskeletal: No Clubbing, No Cyanosis and No Edema
Skin: Warm and Dry
Neuro: Awake, Alert and Oriented
Psych: Calm
[2024-01-27] MEDS: OSCAL CAL 500 500 MG PO (08:55)
[2024-01-27] MEDS: TYLENOL 650 MG PO ×2 (10:49→20:22)
[2024-01-27] MEDS: PACERONE 400 MG PO ×3 (11:13→22:37)
[2024-01-27] MEDS: LOPRESSOR 5 MG IV ×2 (11:14→12:03)
--- NOTE | 2024-01-27 11:22 | W.PN.CARDCBS ---
Addendum entered and electronically signed by Booker Chavez MD 01/27/24 12:48:
I saw and examined the patient.
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
Comment: Briefly, 63-year-old woman with past medical history of atrial fibrillation
Started on sotalol therapy recently however continued to have breakthrough episodes of atrial fibrillation and therefore presented through the emergency department in atrial fibrillation with rapid ventricular response
Following sotalol washout she was initiated on oral amiodarone
Unfortunately developed rapid atrial flutter earlier this morning
As needed IV Lopressor for heart rate goal less than 110 bpm and will consider consider Cardizem drip if this is ineffective
Continue p.o. amiodarone load
Eliquis for cardioembolic prophylaxis
Outpatient EP evaluation for ablation
Original Note:
Today's Communication / Plan
-
Lopressor 5 mg IV x1 with slowing of HR, but remains in rapid flutter so another 5 mg IV x1 ordered, if remains in flutter then will start Cardizem gtt
Increase Cardizem CD to 240 mg daily
Outpatient ablation
Impression / Plan
-
PCP: Kathi Thomas
Cotton Classer Aide: Dr. Mayen
Impression:
Paroxysmal atrial fibrillation w/ RVR
Sotalol therapy, started 01/20/24, stopped 01/25/24 AM
New to amiodarone 01/26/24 PM
Chronic Eliquis anticoagulation since 01/18/24
Paroxysmal typical atrial flutter
Severe CARLOS, compliant w/ CPAP
Rheumatoid arthritis
Mild MR
Hypothyroidism
Anxiety/depression
ADHD on viloxazine
Echo 01/21/24: EF 55-60%, mild-mod cLVH, mild MR, trivial pericardial effusion
Plan:
-ECG ordered and reviewed by me shows rapid typical atrial flutter with QTc 387 ms. Recheck ECG when back in SR as well
-Patient recurred with rapid atrial flutter 01/27/24 and was symptomatic with flushing, diaphoresis and weakness. Ordered Lopressor 5 mg IV x1 and HR slowed, but remains in atrial flutter so another dose of Lopressor 5 mg IV ordered for now.
-If patient fails to respond to Lopressor IV x2 then will start Cardizem gtt which patient says has worked in the past
-Increase Cardizem CD to 240 mg daily
-Patient was taking sotalol on admission and the last dose given was 01/25/24 AM. Following washout patient was started on amiodarone 400 mg TID starting 01/26/24 PM. Will aim for a 2-3 gram load while inpatient. Patient has received an 800 mg load as
of 01/27/24 AM.
-Reviewed potential long-term side effects of amiodarone with patient and also that our plan is to use amiodarone as a bridge to ablation.
-Patient was seen by EP attending on 01/26/24 and plan is for PVI +/- LAPW isolation and then perform EPS to look for inducible atrial flutter following routine pre-ablation testing including CT scan, ablation will likely be performed in the next 1-2
months.
-She continues on Eliquis 5mg BID for anticoagulation.
-Echo recently at [facility] noted preserved EF with mild MR. No need to repeat at this time.
-She is compliant with her CPAP at home.
-TSH 5.45 with free T4 1.09. Continue levothyroxine
-K 4.2
-Troponin negative x 2. Consider eventual ischemic evaluation.
Progress Note - Cotton Classer Aide
Subjective
Date of Service: January 27, 2024
She feels flushed and weak
Objective
Labs:
01/27/24 04:58
01/27/24 04:58
Labs
Hgb 13.0 g/dL (12.0-16.0) 01/27/24 04:58
Hct 39.4 % (37.0-47.0) 01/27/24 04:58
Plt Count 440 10^3/uL (130-400) H 01/27/24 04:58
PT 15.2 Sec (11.4-14.6) H 01/24/24 14:23
INR 1.21 01/24/24 14:23
Sodium 142 mmol/L (135-145) 01/27/24 04:58
Potassium 4.4 mmol/L (3.5-5.1) 01/27/24 04:58
BUN 15 mg/dl (7-17) 01/27/24 04:58
Creatinine 0.7 mg/dL (0.6-1.0) 01/27/24 04:58
Glucose 107 mg/dl (70-99) H 01/27/24 04:58
Troponins
01/24/24 01/24/24 01/24/24
14:23 20:50 23:39
Troponin I < 0.012 < 0.012 Cancelled
01/25/24
05:21
Troponin I < 0.012
Vital Signs and I&O:
Vital Signs
Temp Pulse Resp BP Pulse Ox
98.1 F 110 16 144/89 98
01/27/24 07:24 01/27/24 11:13 01/27/24 07:24 01/27/24 11:13 01/27/24 07:24
Vital Signs
Temp Pulse Resp BP Pulse Ox
98.1 F 110 16 144/89 98
01/27/24 07:24 01/27/24 11:13 01/27/24 07:24 01/27/24 11:13 01/27/24 07:24
Intake & Output
01/25/24 01/26/24 01/27/24 01/28/24
06:59 06:59 06:59 06:59
Intake Total 480 / 480 1200 / 1200
Balance 480 / 480 1200 / 1200
Physical Exam
Physical Exam
GEN: NAD. AAOx3
HEENT: EOMI
LUNGS: No audible wheeze
CV: Atrial flutter with RVR on tele
ABD: ND
EXT: No edema B/L
NEURO: Gross non-focal
SKIN: No rash
--- NOTE | 2024-01-27 11:34 | PTCARENOTE ---
Pt noted to be in atrial flutter at a rate of 152. Pt c/o a headache, sweats and tightness in her chest. Nasal cannula at 2 liters initiated. VSS. PA notified. Amiodarone and metoprolol given as ordered. EKG obtained. Will monitor.
--- NOTE | 2024-01-27 12:38 | CM ---
Reviewed chart. Met with Mrs. Cr to review discharge plans. She states she had A. flutter this a.m. Prior to admission she resides with her spouse in a two story home with two steps to enter. Prior to admission she was independent with
ambulation and adls. She has a CPAP Machine at home and no other DME. She has a prescription plan and uses [facility]. Medical work-up in progress. The discharge plan is to return home with her spouse when medically stable.
[2024-01-27] MEDS: CARDIZEM 125 IV (14:32)
[2024-01-27] MEDS: IMODIUM 2 MG PO (15:34)
--- NOTE | 2024-01-27 21:40 | PTCARENOTE ---
Pt remains in controlled aflutter on IV Cardizem gtt at 5 mg/hr. Pt with c/o H/A medicated with Tylenol, resting at present.
[2024-01-27] MEDS: ZOLOFT 25 MG PO (22:37)
[2024-01-27] MEDS: MELATONIN 3 MG PO (22:37)
--- NOTE | 2024-01-28 03:12 | PTCARENOTE ---
At 0302 pt converted to sinus rhythm 60.
[2024-01-28 05:12] VITALS: BP 103/56
[2024-01-28 05:44] LABS: Hematocrit 36.3 % (37.0-47.0); Mean Corp Hgb Conc. 33.1 g/dL (33.0-37.0); Mean Corpuscular Hgb 28.5 pg (27.0-31.0); Mean Corpuscular Volume 86.2 fL (81.0-99.0); Mean Platelet Volume 10.2 fL (7.4-10.4); Platelet Count 440 10^3/uL (130-400); Red Blood Cell Count 4.21 10^6/uL (4.20-5.40); Red Cell Dist. Width 13.2 % (11.5-14.5); White Blood Cell Count 9.6 10^3/uL (4.8-10.8)
[2024-01-28] MEDS: SYNTHROID 137 MCG PO (05:45)
[2024-01-28 06:00] VITALS: BMI 32.9
[2024-01-28 07:15] LABS: Blood Urea Nitrogen 12 mg/dl (7-17); Calcium 9.2 mg/dl (8.4-10.2); Carbon Dioxide 27 mmol/L (22-30); Chloride 105 mmol/L (98-107); Estimated Creatinine Clearance 95 ml/min; Glucose 102 mg/dl (70-99); Potassium 4.3 mmol/L (3.5-5.1); Sodium 142 mmol/L (135-145); eGFR > 60.00
[2024-01-28 08:04] VITALS: BP 155/61
[2024-01-28] MEDS: VITAMIN D3 (cholecalciferol) 25 MCG PO (08:04)
[2024-01-28] MEDS: OSCAL CAL 500 500 MG PO (08:04)
[2024-01-28] MEDS: PACERONE 400 MG PO ×2 (08:04→15:38)
[2024-01-28] MEDS: ELIQUIS 5 MG PO (08:04)
[2024-01-28] MEDS: B COMPLEX w/VITAMIN C 1 CAPLET PO (08:04)
[2024-01-28] MEDS: THERAGRAN 1 TABLET PO (08:04)
[2024-01-28] MEDS: WELLBUTRIN XL (24 hour extended release) 300 MG PO (08:05)
[2024-01-28] MEDS: TYLENOL 650 MG PO (08:05)
[2024-01-28] MEDS: CARDIZEM CD 240 MG PO (08:05)
[2024-01-28] MEDS: NON-FORMULARY ITEM 20 MG PO (08:05)
[2024-01-28 11:26] VITALS: BP 151/66
[2024-01-28 11:34] VITALS: BP 151/64
[2024-01-28 11:36] LABS: Glucose - Point of Care 67 mg/dl (70-99)
[2024-01-28 11:53] LABS: Glucose - Point of Care 96 mg/dl (70-99)
--- NOTE | 2024-01-28 11:56 | PTCARENOTE ---
About 1130, pt reports feeling sweaty/shaky. VSS. Blood sugar checked, result of 67. given 4oz of juice. Recheck blood sugar was 96. Dr. Dumont made aware via tiger text. Cora Conley PA-C, also made aware. Will continue to monitor.
--- NOTE | 2024-01-28 15:23 | W.PN.CARDCBS ---
Today's Communication / Plan
-
amidoarone 200mg bid x 4 weeks then daily
NOAC
we will call in am to arrange outpt ablation
Impression / Plan
-
PCP: Kathi Thomas
General Adjuster: Dr. Mayen
Impression:
Paroxysmal atrial fibrillation w/ RVR
Sotalol therapy, started 01/20/24, stopped 01/25/24 AM
New to amiodarone 01/26/24 PM
Chronic Eliquis anticoagulation since 01/18/24
Paroxysmal typical atrial flutter
Severe CARLOS, compliant w/ CPAP
Rheumatoid arthritis
Mild MR
Hypothyroidism
Anxiety/depression
ADHD on viloxazine
Echo 01/21/24: EF 55-60%, mild-mod cLVH, mild MR, trivial pericardial effusion
Plan:
-QTc is stable on amiodarone loading. I am comfortable with discharge today (01/27) on amiodarone 200mg bid x 4 weeks then daily thereafter
-She will have paroxysmal arrhythmias and this can be tolerated as an outpt.
-Cardizem CD to 240 mg daily
-Reviewed potential long-term side effects of amiodarone with patient and also that our plan is to use amiodarone as a bridge to ablation.
-Patient was seen by EP attending on 01/26/24 and 01/28/24 and plan is for PVI +/- LAPW isolation and then perform EPS to look for inducible atrial flutter following routine pre-ablation testing including CT scan, ablation will likely be performed in
the next 1-2 months.
-She continues on Eliquis 5mg BID for anticoagulation.
-Echo recently at [facility] noted preserved EF with mild MR. No need to repeat at this time.
-She is compliant with her CPAP at home.
-TSH 5.45 with free T4 1.09. Continue levothyroxine
Progress Note - General Adjuster
Subjective
Date of Service: January 28, 2024
Objective
Labs:
01/28/24 05:32
01/28/24 06:39
Labs
Hgb 12.0 g/dL (12.0-16.0) 01/28/24 05:32
Hct 36.3 % (37.0-47.0) L 01/28/24 05:32
Plt Count 440 10^3/uL (130-400) H 01/28/24 05:32
PT 15.2 Sec (11.4-14.6) H 01/24/24 14:23
INR 1.21 01/24/24 14:23
Sodium 142 mmol/L (135-145) 01/28/24 06:39
Potassium 4.3 mmol/L (3.5-5.1) 01/28/24 06:39
BUN 12 mg/dl (7-17) 01/28/24 06:39
Creatinine 0.7 mg/dL (0.6-1.0) 01/28/24 06:39
Glucose 102 mg/dl (70-99) H 01/28/24 06:39
Vital Signs and I&O:
Vital Signs
Temp Pulse Resp BP Pulse Ox
98.2 F 71 20 151/64 96
01/28/24 11:26 01/28/24 13:45 01/28/24 11:26 01/28/24 11:34 01/28/24 11:26
Vital Signs
Temp Pulse Resp BP Pulse Ox
98.2 F 71 20 151/64 96
01/28/24 11:26 01/28/24 13:45 01/28/24 11:26 01/28/24 11:34 01/28/24 11:26
Intake & Output
01/26/24 01/27/24 01/28/24 01/29/24
06:59 06:59 06:59 06:59
Intake Total 480 / 480 1200 / 1200 745 / 745
Balance 480 / 480 1200 / 1200 745 / 745
Physical Exam
Physical Exam
heent ncat
jvp 6
cor regular
lungs ctab
abd soft nt nd
no ext edema
aao x3
ekg reviewed
[2024-01-28 15:24] VITALS: BP 153/66
[2024-01-28 15:57] LABS: Lyme Antibody Screen, EIA Negative (Negative)
--- NOTE | 2024-01-28 16:08 | W.PN.HOSP.TC ---
Addendum entered and electronically signed by Edgar Ceron MD 01/28/24 23:41:
I saw and evaluated the patient. I reviewed the resident�s note and agree with findings and plan as documented in the resident�s note. a flutter all night returned to NSR this am. Feels ready to go home. no sxs. Full 12 point ROS reviewed and
negative except as documented Exam: Vitals reviewed in chart GEN-NAD heart irreg irreg tachycardic no m/r/g abd soft LE no edema Plan:
# Afib with RVR
- back to NSR
- sotalol washed out
- cont amiodarone load started on 01/25
- cont incrased Cardizem PO
- for PVI +/- LAPW isolation and then perform EPS to look for inducible atrial flutter as OP
- screening preablation CT as OP
- cards input appreciated
- cont Eliquis
# Rheumatoid arthritis
- cont current meds leflunomide
- refusing steroids
- Tylenol as needed
- f/u rheum as OP
# Migratory Polyarthritis
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
- r/o lyme - NEG
# Hypothyroidism
- cont levothyroxine
- elevated TSH
- repeat as OP in 4 weeks
# CARLOS
- patient states she is compliant with CPAP
- encourage Cpap q hs
# Depression
- cont bupropion and sertraline
- was on 500mg viloxazine may need to decrease as OP
Full code
DVT proph- eliquis
Dispo DC home
Time spent coordinating care, review of plan of care with resident, review of records, med rec, DC planning, transition of care, consults, notes, labs, rads, d/w nursing and cards� 35 mins
Original Note:
Today's Communication/Plan
-
Discharge planning
Assessment / Plan
Assessment / Plan
Impression: 53-year-old female with recent diagnosis of A-fib with RVR, history of rheumatoid arthritis sleep apnea (+ CPAP HS), ADHD, hypothyroidism, presents with multiple episodes of A-fib with RVR
Acute Problems:
A-fib with RVR:
Generalized muscle pain
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
Rheumatoid arthritis
Sleep apnea
ADHD
Hypothyroidism
#A-fib with RVR
-Aflutter yesterday while on cardizem drip. Returned to SR at 3am this morning.
Cardizem 240mg daily starting today
Start Amioderone 200mg PO daily for 4 weeks, then 200mg once daily
Continue Eliquis
Outpatient cardiology follow up
Cardiology to plan ablation procedure
Outpt: Continue cheondoism sleep apnea treatment and lifestyle change
#Generalized muscle/joint pain
likely migratory polyarthritis related to RA
- R/O lyme, lyme panel pending
#Rheumatoid arthritis:
Recent exacerbation, resolving
-Continue leflunomide
-No steroids or NSAIDs per pt preference
-Tylenol as needed for pain
#Sleep apnea
Might be a contributing factor to A-fib
Recent weight loss
Compliant with CPAP
#ADHD
- Viloxazine held per patient preference, for possible contribution to afib
Hypothyroidism:
TSH 5.45 (elevated), T4 1.09
-Continue levothyroxine
-repeat as outpt in 4 weeks
Prediabetes:
HbA1c 5.8
- Follow up with PCP outpt
Depression
- cont bupropion and sertraline
DVT prophylaxis Eliquis, SCD
CODE STATUS full code
Anticipated Discharge: Today
Subjective/Interval History
-
Date of Service: January 28, 2024
Aflutter through yesterday with mostly normal rate, while on cardizem drip. Returned to Sinus rhythm at 3am with rate in 60s.
Episode of symptomatic hypoglycemia to 67 this morning, resolved quickly with juice
Objective Data
-
Labs:
Laboratory Results
01/28/24 01/28/24
05:32 06:39
WBC 9.6
Hgb 12.0
Hct 36.3 L
Plt Count 440 H
Sodium Cancelled 142
Potassium Cancelled 4.3
Chloride Cancelled 105
Carbon Dioxide Cancelled 27
BUN Cancelled 12
Creatinine Cancelled 0.7
Glucose Cancelled 102 H
Calcium Cancelled 9.2
Vital Signs:
Vital Signs
Temp Pulse Resp BP Pulse Ox
98.0 F 73 18 153/66 99
01/28/24 15:25 01/28/24 15:38 01/28/24 15:25 01/28/24 15:38 01/28/24 15:25
I&O
01/27/24 01/28/24 01/29/24
06:59 06:59 06:59
Intake Total 1200 / 1200 745 / 745
Balance 1200 / 1200 745 / 745
Review of Systems
-
History Source: Patient
Constitutional: Reports No Symptoms
Respiratory: Reports No Symptoms; Denies Trouble Breathing
Cardiac: Reports No Symptoms; Denies Chest Pain, Diaphoresis, Palpitations or Syncope
Abdomen/GI: Reports No Symptoms; Denies Abdominal Pain, Nausea, Vomiting, Diarrhea or Constipated
Genitourinary: Reports No Symptoms
Musculoskeletal: Reports Joint Pain (mild) and Muscle Pain
Neuro: Denies Dizzy, Headache or Weakness
Physical Exam
-
General: Well Developed, Well Nourished, No Apparent Distress and Comfortable; Negative Respiratory Distress
HEENT: Normocephalic, Atraumatic, Moist Mucous Membranes and Anicteric
Respiratory: Clear to Auscultation and Non Labored Respirations; Negative Accessory Resp Muscle Use
Cardiac: Regular Rhythm, S1/S2 and Other (Regular rate); Negative Calf Tenderness
GI: Soft, Nontender, Nondistended and Normal Bowel Sounds
Musculoskeletal: No Clubbing, No Cyanosis and No Edema
Skin: Warm and Dry
Neuro: Awake, Alert and Oriented
Psych: Calm
[2024-01-28 16:20] LABS: Glucose - Point of Care 103 mg/dl (70-99)
--- NOTE | 2024-01-28 16:48 | W.DCSUMMARY ---
Addendum entered and electronically signed by Edgar Ceron MD 01/28/24 23:38:
Attending Addendum:
Read reviewed and agree. See same day progress note for additional details.
Aamir Ceron MD
Original Note:
Documented by User: Kalli Dumont MD, Resident 01/28/24 18:34
Discharge Summary
Discharge Data
Date of Admission: 01/24/24
Date of Discharge: 01/28/24
-
Pending Results: Yes
Additional Pending Results:
Hemoglobin A1c
Lyme disease screen
Hospital Course
53-year-old female with recent diagnosis of A-fib with RVR, history of rheumatoid arthritis sleep apnea (+ CPAP HS), ADHD, hypothyroidism, presents with recurrent paroxysmal Afib + RVR.
Hospital course: She presented to ER on 01/23 in A-fib with rapid ventricular response rate to 120s, after experiencing 2 episodes that day. She arrived on Eliquis, sotalol and Cardizem at time of presentation. Cardiology was consulted, sotalol
was discontinued and amiodarone on 01/25 was initiated after sotalol washout. Unfortunately patient had symptomatic A-fib/aflutter with RVR on 01/26. Amiodarone was continued, with Cardizem drip and Lopressor push as needed for control. Patient
returned to sinus rhythm on 01/27 and will be discharged with amiodarone regimen and Eliquis, with cardiology follow-up and arrangements for ablation.
There was an episode of symptomatic hypoglycemia on 01/27 which was quickly corrected with juice. HbA1c test sent, awaiting results at time of discharge.
Other conditions
#Rheumatoid arthritis
Pt was in a flare on arrival, with mild to moderate joint aches. leflunomide was continued. No steroids per patient preference. Pain control with Tylenol. To follow-up with vascular nurse outpatient
# Migratory Polyarthritis
Patient also complained about other muscle and joint pains. Lyme panel sent, awaiting results.
#ADHD
She was on 500mg viloxazine on admission, this was reduced to 100, and discontinued per patient's preference due to possible contribution to A-fib
# Hypothyroidism
TSH was mildly elevated, with normal T4. Levothyroxine dose continued. Recommend repeat thyroid function test as outpatient in 4 weeks
#Prediabetes
HbA1c 5.8. Recommend follow-up with PCP
# Obstructive sleep apnea
Patient is compliant with CPAP. CPAP used at night during stay. Related to CPAP use encouraged, continued weight loss and lifestyle change encouraged.
# Depression
Bupropion and sertraline were continued throughout stay
DATA:
Echo 01/21/2024: EF 55-60%, mild-mod cLVH, mild MR, trivial pericardial effusion
Recommend follow up with PCP within 2 weeks of discharge, recheck thyroid function within 4 weeks of discharge, [facility] cardiology follow-up and plan for ablation,
Discharge Plan
-
Patient Disposition: Home (Routine Discharge)
Discharge Diagnosis/Procedures: A- fib with rapid ventricular response
Diet: No restrictions
Activity: No restrictions
Driving Restrictions: As prior to admission
Bathing Restrictions: None
Referrals:
Kathi hTomas CRNP [Family Provider] -
Additional Discharge Medication Instructions: START Amioderone 200mg tablet, orally, TWICE daily for 4 weeks only, STOP date 02/25/2024
FUTURE START: Amioderone 200mg tablet ONCE daily for 4 weeks, start date 02/26/2024
START Diltiazem HCl 240 mg capsule, once daily
Please follow-up with your PCP Kathi Thomas, within 2 weeks of discharge
Repeat thyroid function test 4 weeks from discharge
Please follow-up shortly with cardiology
Prescriptions:
New
diltiazem HCl 240 mg Capsule,Extended Release 24hr
240 mg PO DAILY Qty: 30 0RF
amiodarone [Pacerone] 200 mg tablet
200 mg PO BID Qty: 56 0RF
amiodarone [Pacerone] 200 mg tablet
200 mg PO DAILY Qty: 28 0RF
Rx Instructions:
Start on 02/26/2024, take for 4 weeks, stop date 03/24/2024
Continued
levothyroxine 137 mcg tablet
137 mcg PO MOTUWETHFRSA
levothyroxine 137 mcg tablet
205.5 mcg PO CHARLES
leflunomide 20 mg tablet
20 mg PO DAILY
sertraline 25 mg tablet
25 mg PO HS
bupropion HCl 300 mg tablet extended release 24 hr
300 mg PO DAILY
Eliquis 5 mg tablet
5 mg PO BID
multivitamin Tablet
1 tab PO DAILY
vitamin B complex Tablet Extended Release
1 tab PO DAILY
calcium carbonate 500 mg calcium (1,250 mg) Tablet
500 mg PO DAILY
cholecalciferol (vitamin D3) 25 mcg (1,000 unit) Tablet
25 mcg PO DAILY
Discontinued
sotalol 120 mg tablet
120 mg PO BID
diltiazem HCl 120 mg capsule,extended release 24hr
120 mg PO DAILY
Qelbree 200 mg capsule,extended release 24hr
400 mg PO DAILY
omega [id number] oil [Fish Oil] 1,000 mg (120 mg-180 mg) Capsule
1 cap PO DAILY
Qelbree 100 mg capsule,extended release 24hr
100 mg PO DAILY
Discharge Orders:
Discharge Patient (As Directed); Ordered 01/28/24
Ordered By: Kalli Dumont
Care Plan Goals
Care Plan Goals:
Problem: Readiness for enhanced knowledge related to diagnosis and treatment plan
Goal: Understand your diagnosis and treatment plan needs, including medications if applicable.
Instructions: Know your diagnosis, underlying causes and treatment plan options, including medications if applicable. Consult with your health care team to learn about your diagnosis and treatment plan, including medications if applicable.
Discharge Date and Time
Discharge Date/Time: 01/28/24 18:57
Print Language: YAKUT

Documented by User: Edgar Ceron MD 01/28/24 23:37
Discharge Summary
Discharge Data
Date of Admission: 01/24/24
Date of Discharge: 01/28/24
Discharge Plan
-
Patient Disposition: Home (Routine Discharge)
Discharge Diagnosis/Procedures: A- fib with rapid ventricular response
Diet: No restrictions
Activity: No restrictions
Driving Restrictions: As prior to admission
Bathing Restrictions: None
Referrals:
Kathi Thomas CRNP [Family Provider] -
Additional Discharge Medication Instructions: START Amioderone 200mg tablet, orally, TWICE daily for 4 weeks only, STOP date 02/25/2024
FUTURE START: Amioderone 200mg tablet ONCE daily for 4 weeks, start date 02/26/2024
START Diltiazem HCl 240 mg capsule, once daily
Please follow-up with your PCP Kathi Thomas, within 2 weeks of discharge
Repeat thyroid function test 4 weeks from discharge
Please follow-up shortly with cardiology
Prescriptions:
New
diltiazem HCl 240 mg Capsule,Extended Release 24hr
240 mg PO DAILY Qty: 30 0RF
amiodarone [Pacerone] 200 mg tablet
200 mg PO BID Qty: 56 0RF
amiodarone [Pacerone] 200 mg tablet
200 mg PO DAILY Qty: 28 0RF
Rx Instructions:
Start on 02/26/2024, take for 4 weeks, stop date 03/24/2024
Continued
levothyroxine 137 mcg tablet
137 mcg PO MOTUWETHFRSA
levothyroxine 137 mcg tablet
205.5 mcg PO CHARLES
leflunomide 20 mg tablet
20 mg PO DAILY
sertraline 25 mg tablet
25 mg PO HS
bupropion HCl 300 mg tablet extended release 24 hr
300 mg PO DAILY
Eliquis 5 mg tablet
5 mg PO BID
multivitamin Tablet
1 tab PO DAILY
vitamin B complex Tablet Extended Release
1 tab PO DAILY
calcium carbonate 500 mg calcium (1,250 mg) Tablet
500 mg PO DAILY
cholecalciferol (vitamin D3) 25 mcg (1,000 unit) Tablet
25 mcg PO DAILY
Discontinued
sotalol 120 mg tablet
120 mg PO BID
diltiazem HCl 120 mg capsule,extended release 24hr
120 mg PO DAILY
Qelbree 200 mg capsule,extended release 24hr
400 mg PO DAILY
omega 2-mfn-[id number]-fish oil [Fish Oil] 1,000 mg (120 mg-180 mg) Capsule
1 cap PO DAILY
Qelbree 100 mg capsule,extended release 24hr
100 mg PO DAILY
Discharge Orders:
Discharge Patient (As Directed); Ordered 01/28/24
Ordered By: Kalli Dumont
Care Plan Goals
Care Plan Goals:
Problem: Readiness for enhanced knowledge related to diagnosis and treatment plan
Goal: Understand your diagnosis and treatment plan needs, including medications if applicable.
Instructions: Know your diagnosis, underlying causes and treatment plan options, including medications if applicable. Consult with your health care team to learn about your diagnosis and treatment plan, including medications if applicable.
Discharge Date and Time
Discharge Date/Time: 01/28/24 18:57
Print Language: YAKUT
[2024-01-29 09:47] LABS: Glycohemoglobin (HgbA1c) 5.5 % (4.0-5.6)
== END 2024-01-28 18:57 | disposition home or self-care (01) | DRG 310 ==
LOC: IVU 18:24
PROVIDERS: Emergency Medicine; Student in an Organized Health Care Education/Training Program; ADMITTING PHYSICIAN Internal Medicine; ATTENDING PHYSICIAN Family Medicine; EMERGENCY PHYSICIAN Emergency Medicine; FAMILY PHYSICIAN Nurse Practitioner; OTHER PHYSICIAN Internal Medicine Cardiovascular Disease
DX: I48.0 Paroxysmal atrial fibrillation (principal); M06.9 Rheumatoid arthritis, unspecified; E03.9 Hypothyroidism, unspecified; G47.33 Obstructive sleep apnea (adult) (pediatric); F32.A Depression, unspecified; F41.9 Anxiety disorder, unspecified; Z79.01 Long term (current) use of anticoagulants; M13.80 Other specified arthritis, unspecified site; M19.90 Unspecified osteoarthritis, unspecified site; F90.9 Attention-deficit hyperactivity disorder, unspecified type
CPT/HCPCS: 80048; 80053; 80061; 82962; 83036; 84439; 84443; 84484; 85025; 85027; 85610; 86618; 93005; 99285

== ENCOUNTER 2024-04-14 05:49 | Day surgery (SDC) | payer BC, SELFPAY ==
[2024-03-28 11:51] VITALS: BMI 34.3
[2024-03-28 12:39] LABS: % Basophils 0.9 % (0-2); % Eosinophils 0.2 % (0-6); % Immature Granulocytes 0.8 % (0-0.5); % Lymphocytes 10.9 % (20.5-51.1); % Monocytes 1.9 % (1.7-9.3); % Neutrophils 85.3 % (42.2-75.2); Absolute Basophils 0.1 10^3/uL (0-0.2); Absolute Immature Granulocytes 0.1 10^3/uL (0-0.05); Absolute Lymphocytes 0.7 10^3/uL (1.2-3.4); Absolute Monocytes 0.1 10^3/uL (0.1-0.6); Absolute Neutrophils 5.5 10^3/uL (1.4-6.5); Mean Corp Hgb Conc. 32.5 g/dL (33.0-37.0); Mean Corpuscular Hgb 28.5 pg (27.0-31.0); Mean Corpuscular Volume 87.7 fL (81.0-99.0); Mean Platelet Volume 11.4 fL (7.4-10.4); Nucleated Red Blood Cells % 0 %; Platelet Count 385 10^3/uL (130-400); Red Blood Cell Count 4.56 10^6/uL (4.20-5.40); Red Cell Dist. Width 15.9 % (11.5-14.5); White Blood Cell Count 6.4 10^3/uL (4.8-10.8)
[2024-03-28 13:00] LABS: ALT (SGPT) 24 U/L (0-35); AST (SGOT) 28 U/L (14-36); Albumin 4.5 g/dl (3.5-5.0); Alkaline Phosphatase 154 U/L (38-126); Blood Urea Nitrogen 16 mg/dl (7-17); Calcium 9.9 mg/dl (8.4-10.2); Carbon Dioxide 23 mmol/L (22-30); Chloride 109 mmol/L (98-107); Estimated Creatinine Clearance 58 ml/min; Glucose 158 mg/dl (70-99); Potassium 4.6 mmol/L (3.5-5.1); Sodium 141 mmol/L (135-145); Total Bilirubin 0.3 mg/dl (0.2-1.3); Total Protein 7.2 g/dl (6.3-8.2); eGFR 51.18
[2024-03-28 13:34] LABS: INR 1.02; PT 13.2 Sec (11.4-14.6)
[2024-04-14] VITALS (21 sets, daily range): BP systolic 136–162; BP diastolic 63–115
[2024-04-14] MEDS: TYLENOL 1000 MG PO (07:12)
[2024-04-14 08:38] LABS: ACT-LR - POC 258 Seconds (116-155)
[2024-04-14 08:55] LABS: ACT-LR - POC 263 Seconds (116-155)
--- NOTE | 2024-04-14 09:13 | ITS.CL.ABL ---
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
Ablation
Procedure Report:
ELECTROPHYSIOLOGY ABLATION STUDY
�
DATE:: April 14, 2024�����������������������������REFERRING: Dr. Sajan Mayen
�
INDICATION: Paroxysmal supraventricular tachycardia in the form of atrial fibrillation.�
�
HISTORY: See H and P.��As above
�
ANTIARRHYTHMIC DRUG: Diltiazem
�
PRE-PROCEDURE FARHAD: No atrial thrombus
�
PRESENTING RHYTHM: Sinus bradycardia
�
'TIME-OUT':��called and confirmed.
�
SEDATION/ANESTHESIA:��provided via the anesthesia department using general anesthesia (LMA).
�
INTRAVENOUS/ARTERIAL ACCESS:
Right femoral venous - 8Fr
Left femoral venous - 8 Fr, 6 Fr
Right femoral venous access was somewhat difficult given low filling pressure and after 600 cc of normal saline we were able to access each of the veins directly with a front wall stick.
Ultrasound guidance for bilateral femoral vein access was utilized by me to obtain access with demonstration of normal anatomy
CHADS-VASC Score:
�
HAS-Bled Score
�
PROCEDURE:
1.��A decapolar CS catheter was placed within the CS for mapping and pacing.��This was also used as the reference catheter for the 3-D map.
�
2. The intracardiac ultrasound catheter was positioned in the RA to identify the FO for targeting of transseptal puncture, assist��in identification of the pulmonary vein ostia, monitoring pre and post ablation pulmonary vein flow velocities,
monitoring for 'bubble' formation during RF application as a sign of thermal injury,��and to monitor for pericardial effusion during mapping and ablation procedure.���Left atrial size, LV ejection fraction, and pulmonary vein flows were monitored
pre and post ablation procedure. The other valves were inspected and found to be free of significant regurgitation or stenosis.
�
3.��Half of the calculated heparin bolus was administered prior to the first transeptal puncture.��Transseptal puncture was performed to diagnose RA and LA pressure so that safety of LA mapping and ablation could be further assessed, and to access
the left atrium and pulmonary veins for mapping and ablation.��This entailed advancing an 10 [place] Contour with dilator needle apparatus into the superior vena cava and withdrawing both (monitoring intracardiac ultrasound, fluoroscopy and tip
pressure) with the tip oriented toward the atrial septum.��The fossa ovalis was engaged (indicated by sudden displacement of the sheath tip as well as tenting of the fossa seen on intracardiac ultrasound).��Left atrial access required a pass with
the [place] needle extended.��Left atrial catheter position was confirmed by pressure monitoring (RA mean pressure 8 mm Hg and LA mean pressure 14 mm Hg), LA saturation ( 99 %),��as well as fluoroscopy.��The sheath was advanced over the
dilator and positioned in the left atrium.��This procedure was repeated for the Agilis sheath.��The remainder of the calculated heparin bolus was administered and heparin was
infused to maintain ACT at 300 -350 seconds throughout the case.
�
4.��RA pacing was performed via the proximal decapolar poles and LA pacing was performed via the distal decapolr poles.
�
5. A quadrapolar catheter was first positioned at the His position for His Bundle recording which was tagged via the 3-D Navex sytem, and then passed to the RVA for RV pacing and recording.
�
6. The grid and pulse select LIPV, LSPV, RSPV and the RIPV.��
�
7.��Next, a 3-D map was created using Navex.���A 3-D reconstructed CT image was compared to the 3-D Navex map to assist in anatomic interpretation, mapping and ablation.��The CT image and the NavX image were fused.
�
8. Total of 92 lesions were given with pulmonary vein nonpulmonary vein lesions. There was a large left common ostium which was addressed as a common ostium. Entrance and exit block was confirmed in all 4 pulmonary veins and the left atrial
posterior wall. We then performed dedicated atrial burst pacing in both atria from 350 ms down to atrial refractoriness at 270 ms and the patient was noninducible for atrial flutter.
�
9. Normal sinus and AV node function noted.
�
�
TOTAL FLOURO TIME: 11.6 minutes 123 mGy
�
TOTAL RF DURATION: 0 minutes
�
REVERSAL OF HEPARIN: 35 mg of protamine, slow IV administration
�
COMPLICATIONS:
None
Intracardiac US shows no pericardial effusion post ablation.
�
SUMMARY:��
Complex left atrial mapping and ablation.
Isolation of all 4 pulmonary veins including a large left common ostium and left atrial posterior wall isolation with pulsed field ablation. The patient was noninducible for atrial flutter post stimulation.
�
RECOMMENDATIONS:
1. Consider same-day discharge
2. Resume anticoagulation
3.��Discontinue diltiazem in 2 to 4 weeks
4.��Out of bed in 4 hours
�
Copy to: Dr. Sajan Mayen
�
[2024-04-14] MEDS: LIORESAL 10 MG PO (13:05)
[2024-04-14] MEDS: WELLBUTRIN XL (24 hour extended release) 300 MG PO (13:05)
--- NOTE | 2024-04-14 13:22 | W.PN.UPDATE ---
Update Note
Progress Note Update
63 yo WF s/p PVI PFA (same day). She feels good, no cp, sob, anita clears, voiding, b/l groins c/d/i, EKG SR, mild R arm swelling with scattered petechia below BP cuff ? r/t BP cuff use, she will monitor closley and elevate arm at home. She will
continue OAC Eliquis at home tonight. Continue diltiazem stop after 2 weeks. She will f/u Dr. Thompson 2 mo. She is for d/c home after 2p if groins stable.
SUMMARY:��
Complex left atrial mapping and ablation.
Isolation of all 4 pulmonary veins including a large left common ostium and left atrial posterior wall isolation with pulsed field ablation. The patient was noninducible for atrial flutter post stimulation.
�
RECOMMENDATIONS:
1. Consider same-day discharge
2. Resume anticoagulation
3.��Discontinue diltiazem in 2 to 4 weeks
4.��Out of bed in 4 hours
�
Copy to: Dr. Sajan Mayen
== END 2024-04-14 14:41 | disposition home or self-care (01) ==
LOC: CATH 05:49
PROVIDERS: ATTENDING PHYSICIAN Internal Medicine Cardiovascular Disease; FAMILY PHYSICIAN Nurse Practitioner
DX: I48.3 Typical atrial flutter (principal); I48.0 Paroxysmal atrial fibrillation; G47.33 Obstructive sleep apnea (adult) (pediatric); M06.9 Rheumatoid arthritis, unspecified; F32.A Depression, unspecified; Z87.891 Personal history of nicotine dependence; E03.9 Hypothyroidism, unspecified; F41.9 Anxiety disorder, unspecified; F90.1 Attention-deficit hyperactivity disorder, predominantly hyperactive type; G50.0 Trigeminal neuralgia; N18.30 Chronic kidney disease, stage 3 unspecified; Z79.899 Other long term (current) drug therapy; Z79.890 Hormone replacement therapy; Z79.69 Long term (current) use of other immunomodulators and immunosuppressants; Z79.01 Long term (current) use of anticoagulants; Z91.041 Radiographic dye allergy status; Z88.8 Allergy status to other drugs, medicaments and biological substances; I47.19 Other supraventricular tachycardia; E66.9 Obesity, unspecified; Z68.34 Body mass index [BMI] 34.0-34.9, adult
CPT/HCPCS: C1732; C1894; C1730; C1733; C1769; C1892; C1759; 36415; 75572; 76937; 80053; 83735; 85025; 85347; 85610; 86850; 86900; 86901; 93005; 93656; 93657; Q9967